=== PATIENT | female | born 1980 | race African-American/Black ===

== ENCOUNTER → 2023-12-18 07:49 | Outpatient (REF) | payer OTHER, SELFPAY | LOC: HWRAD 07:49 | PROVIDERS: ATTENDING PHYSICIAN Nurse Practitioner Family | DX: M79.641 Pain in right hand (principal); M79.642 Pain in left hand; M54.2 Cervicalgia | CPT/HCPCS: 72050; 73110 ==

== ENCOUNTER → 2023-12-19 08:33 | Outpatient (REF) | payer OTHER, SELFPAY | LOC: HWRAD 08:33 | PROVIDERS: ATTENDING PHYSICIAN Nurse Practitioner Family | DX: M79.641 Pain in right hand (principal); M79.642 Pain in left hand | CPT/HCPCS: 73130 ==

== ENCOUNTER → 2024-02-02 07:47 | Outpatient (REF) | payer OTHER, SELFPAY | LOC: HWWDC 07:47 | PROVIDERS: ATTENDING PHYSICIAN Nurse Practitioner Family | DX: Z12.31 Encounter for screening mammogram for malignant neoplasm of breast (principal) | CPT/HCPCS: 77063; 77067 ==

== ENCOUNTER → 2025-01-20 16:26 | Outpatient (REF) | payer OTHER, SELFPAY | LOC: PAVMRI 16:26 | PROVIDERS: ATTENDING PHYSICIAN Nurse Practitioner Family | DX: M54.2 Cervicalgia (principal) | CPT/HCPCS: 72141 ==